=== PATIENT | male | born 1980 | race Caucasian/White ===

== ENCOUNTER 2017-10-08 22:44 | Emergency (ER) | payer OTHER ==
[2017-10-08] MEDS ORDERED: ONDANSETRON 4 MG/2 ML VIAL IVP ONE (23:02)
[2017-10-08] MEDS ORDERED: NS 1,000 ML IV ONE ×2 (23:02)
--- NOTE | 2017-10-08 23:05 | EDPHY ---
H & P Stated Complaint: VOMIT THIS EVENING, DIARRHEA ALL DAY Time Seen by Provider: 10/08/17 22:56 HPI/ROS: CHIEF COMPLAINT: Nausea vomiting diarrhea HISTORY OF PRESENT ILLNESS: 37-year-old male who via private vehicle complaining of nausea vomiting diarrhea since this morning. No abdominal pain. No lightheadedness. No back or flank pain. No chest pain. No history of chronic abdominal pathology. No history of abdominal surgeries. No fever or chills. No known sick contacts. No untreated water sources. REVIEW OF SYSTEMS: A ten point review of systems was performed and is negative with the exception of the items mentioned in the HPI PAST MEDICAL & SURGICAL HISTORY: No pertinent medical or surgical history SOCIAL HISTORY:Nonsmoker. No marijuana use. No alcohol use. PHYSICAL EXAM (Prior to examination, patient consented to physical exam, hands were washed and my usual and customary physical exam procedures followed) 1) GENERAL: Well-developed, well-nourished, alert and oriented. Appears to be in no acute distress. 2) HEAD: Normocephalic, atraumatic 3) HEENT: Pupils equal, round, reactive to light bilaterally. Sclera anicteric. Nasopharynx, oropharynx, clear, no lesions. Dry mucous membranes 4) NECK: Full range of motion, no meningeal signs. 5) LUNGS: Clear auscultation bilaterally, no wheezes, no rhonchi, no retractions. 6) HEART: Regular rate and rhythm, no murmur, no heave, no gallop. 7) ABDOMEN: No guarding, no rebound, no focal tenderness, negative McBurney's, negative Gutierrez's, negative Rovsing's, negative peritoneal sign, 8) MUSCULOSKELETAL: Moving all extremities, no focal areas of tenderness, no obvious trauma. No peripheral edema or discoloration. 9) BACK: No visual or palpable abnormality. 10) SKIN: No rash, no petechiae. 11) Psychiatric: Patient is oriented X 3, there is no agitation. DIFFERENTIAL DIAGNOSIS: In no particular include but limited to gastroenteritis , acute appendicitis, acute cholecystitis, acute pancreatitis - Personal History Current Tetanus/Diphtheria Vaccine: Yes - Medical/Surgical History Hx Asthma: No Hx Chronic Respiratory Disease: No Hx Diabetes: No Hx Cardiac Disease: No Hx Renal Disease: No Hx Cirrhosis: No Hx Alcoholism: No Hx HIV/AIDS: No Hx Splenectomy or Spleen Trauma: No Other PMH: MELANOMA- LOW BACK, LEFT ARM 2015 AND 2016, - Social History Smoking Status: Never smoked Constitutional: Initial Vital Signs Temperature (C) 36.7 C 10/08/17 22:48 Heart Rate 90 10/08/17 22:48 Respiratory Rate 20 10/08/17 22:48 Blood Pressure 134/92 H 10/08/17 22:48 O2 Sat (%) 97 10/08/17 22:48 O2 Delivery Mode Room Air Allergies/Adverse Reactions: Penicillins Allergy (Verified 10/08/17 22:48) Home Medications: Medication Instructions Recorded NK [No Known Home Meds] 10/08/17 Medical Decision Making ED Course/Re-evaluation: 1244 a.m.: Re-evaluation, sleeping, easily woken, states that he is feeling improvement, would like to attempt oral fluid challenge. Abdomen rexamined which remains soft. Doubt acute surgical abdominal pathology. 1:30 a.m. Re-evaluation, patient has tolerated oral intake. Re-examined his abdomen at this time which is soft no guarding no rebound, no McBurney's point pain, negative Gutierrez's.. Doubt acute surgical abdominal pathology, doubt acute pancreatitis, doubt acute cholecystitis, doubt acute appendicitis. At this time I do not think that further diagnostic studies are indicated. Plan will be discharge home with antiemetic. Usual customary abdominal precautions instructions provided. He feels comfortable being discharged. Care of patient under supervision of secondary supervising physician Dr Tijerina . - Data Points Laboratory Results: Laboratory Results 10/08/17 23:13 10/08/17 23:13 10/08/17 10/08/17 23:13 23:13 WBC 4.96 10^3/uL 10^3/uL (3.80-9.50) RBC 4.65 10^6/uL 10^6/uL (4.40-6.38) Hgb 14.8 g/dL g/dL (13.7-17.5) Hct 42.2 % % (40.0-51.0) MCV 90.8 fL fL (81.5-99.8) MCH 31.8 pg pg (27.9-34.1) MCHC 35.1 g/dL g/dL (32.4-36.7) RDW 12.4 % % (11.5-15.2) Plt Count 161 10^3/uL 10^3/uL (150-400) MPV 9.9 fL fL (8.7-11.7) Neut % (Auto) 83.0 % H % (39.3-74.2) Lymph % (Auto) 8.3 % L % (15.0-45.0) [place] % (Auto) 7.7 % % (4.5-13.0) Eos % (Auto) 0.4 % L % (0.6-7.6) Baso % (Auto) 0.4 % % (0.3-1.7) Nucleat RBC Rel Count 0.0 % % (0.0-0.2) Absolute Neuts (auto) 4.12 10^3/uL 10^3/uL (1.70-6.50) Absolute Lymphs (auto) 0.41 10^3/uL L 10^3/uL (1.00-3.00) Absolute Monos (auto) 0.38 10^3/uL 10^3/uL (0.30-0.80) Absolute Eos (auto) 0.02 10^3/uL L 10^3/uL (0.03-0.40) Absolute Basos (auto) 0.02 10^3/uL 10^3/uL (0.02-0.10) Absolute Nucleated RBC 0.00 10^3/uL 10^3/uL (0-0.01) Immature Gran % 0.2 % % (0.0-1.1) Immature Gran # 0.01 10^3/uL 10^3/uL (0.00-0.10) Sodium 139 mEq/L mEq/L (134-144) Potassium 3.9 mEq/L mEq/L (3.5-5.2) Chloride 100 mEq/L mEq/L (97-110) Carbon Dioxide 25 mEq/l mEq/l (22-31) Anion Gap 14 mEq/L mEq/L (8-16) BUN 13 mg/dL mg/dL (7-23) Creatinine 0.8 mg/dL mg/dL (0.7-1.3) Estimated GFR > 60 Glucose 112 mg/dL H mg/dL (70-100) Calcium 9.5 mg/dL mg/dL (8.5-10.4) Total Bilirubin 0.5 mg/dL mg/dL (0.1-1.4) Conjugated Bilirubin 0.2 mg/dL mg/dL (0.0-0.5) Unconjugated Bilirubin 0.3 mg/dL mg/dL (0.0-1.1) AST 29 IU/L IU/L (17-59) ALT 36 IU/L IU/L (21-72) Alkaline Phosphatase 73 IU/L IU/L (38-126) Total Protein 7.6 g/dL g/dL (6.3-8.2) Albumin 4.5 g/dL g/dL (3.5-5.0) Lipase 71 IU/L IU/L (23-300) Medications Given: Discontinued Medications Sodium Chloride (Ns) 1,000 mls @ 0 mls/hr IV EDNOW ONE; Wide Open PRN Reason: Protocol Stop: 10/08/17 23:03 Last Admin: 10/08/17 23:11 Dose: 1,000 mls Sodium Chloride (Ns) 1,000 mls @ 0 mls/hr IV EDNOW ONE; Wide Open PRN Reason: Protocol Stop: 10/08/17 23:03 Last Admin: 10/08/17 23:11 Dose: 1,000 mls Ondansetron HCl (Zofran) 4 mg IVP EDNOW ONE Stop: 10/08/17 23:03 Last Admin: 10/08/17 23:10 Dose: 4 mg Departure - Departure Disposition: Home, Routine, Self-Care Clinical Impression: Volume depletion Nausea & vomiting Qualifiers: Vomiting type: unspecified Vomiting Intractability: non-intractable Qualified Code(s): R11.2 - Nausea with vomiting, unspecified Diarrhea Qualifiers: Diarrhea type: unspecified type Qualified Code(s): R19.7 - Diarrhea, unspecified Condition: Good Instructions: Ondansetron (By mouth), Acute Nausea and Vomiting (ED) Additional Instructions: Seek immediate medical attention if you develop new or worsening symptoms, if you develop fevers, chills, inability to tolerate oral intake or any other symptoms that concerns you. Referrals: Foster Knox MD [Primary Care Provider] - 1-2 days without fail
[2017-10-08 23:35] LABS: PLATELET COUNT 161 10^3/uL (150-400)
[2017-10-09 00:45] VITALS: RESP 16
[2017-10-09] MEDS ORDERED: ONDANSETRON 4MG PREPACK#2 BTL TAKEHOME ONE (00:56)
[2017-10-09 01:41] VITALS: BP 129/88; PULSE 82; TEMP 98.4; O2SAT 96
== END 2017-10-09 01:41 | disposition home or self-care (01) ==
DX: R11.2 Nausea with vomiting, unspecified (principal); R19.7 Diarrhea, unspecified; E86.9 Volume depletion, unspecified
CPT/HCPCS: 96374; J2405